=== PATIENT | female | born 1945 | race Caucasian/White ===

== ENCOUNTER 2022-05-20 10:08 | Emergency (ER) | payer BC, MEDICAID ==
[~2022-05-20] VITALS: Ht 170.2 cm; Wt 54.5 kg
[~2022-05-20 10:08] MED LIST: ACET325T57 PO; ATOR20TA66 PO; AZIT500T9 PO; CELE-193 PO; DULO-31 PO; GABA-530 PO; HYDR-3686 PO; LORA10TA7 PO; METH-798 PO; METO-292 PO; OXYC1TAB17 PO; PRED10TA PO; TRAZ-251 PO
[2022-05-20 11:07] LABS: BASOPHILS # (AUTO) 0.1 X10'3 (0-0.2); BASOPHILS % (AUTO) 0.7 % (0-1); EOSINOPHILS # (AUTO) 0.1 X10'3 (0-0.9); EOSINOPHILS % (AUTO) 0.4 % (0-6); HEMATOCRIT 33.6 % (35.0-45.0); LYMPHOCYTES # (AUTO) 1.3 X10'3 (1.1-4.8); LYMPHOCYTES % (AUTO) 8.8 % (21-51); MEAN CORPUSCULAR HEMOGLOBIN 30.5 PG (27.0-31.0); MEAN CORPUSCULAR HGB CONC 32.9 g/dL (33.0-36.5); MEAN CORPUSCULAR VOLUME 92.6 FL (78-98); MEAN PLATELET VOLUME 6.4 FL (7.4-10.4); MONOCYTES # (AUTO) 0.9 X10'3 (0-0.9); MONOCYTES % (AUTO) 5.7 % (2-12); NEUTROPHILS # (AUTO) 12.8 X10'3 (1.8-7.7); NEUTROPHILS % (AUTO) 84.4 % (42-75); PLATELET COUNT 476 X10'3 (140-440); RED BLOOD COUNT 3.62 X10'6 (4.20-5.60); RED CELL DISTRIBUTION WIDTH 15.3 % (11.5-14.5); WHITE BLOOD COUNT 15.2 X10'3 (4.5-11.0)
[2022-05-20 11:30] LABS: ALANINE AMINOTRANSFERASE 22 U/L (12-78); ALBUMIN/GLOBULIN RATIO 0.6 (1.1-1.5); ALKALINE PHOSPHATASE 93 IU/L (46-116); ANION GAP 7 (8-16); ASPARTATE AMINO TRANSFERASE 17 U/L (10-37); BILIRUBIN,TOTAL 0.3 MG/DL (0.1-1.0); BLOOD UREA NITROGEN 11 MG/DL (7-18); BUN/CREATININE RATIO 18.6 (6.6-38.0); CALCIUM 9.2 MG/DL (8.5-10.1); CHLORIDE 97 MMOL/L (99-107); CREATININE 0.59 MG/DL (0.40-0.90); GLUCOSE 99 MG/DL (70-104); POTASSIUM 4.1 MMOL/L (3.5-5.1); SODIUM 130 MMOL/L (135-145); TOTAL CARBON DIOXIDE 26.4 MMOL/L (24-32); eGFR > 90 ML/MIN
[2022-05-20] MEDS ORDERED: HYDROcodone/acetaminophen 5mg/325mg tablet PO ONE (12:10)
[2022-05-20] MEDS ORDERED: benzonatate 100mg capsule PO ONE (12:10)
[2022-05-20 12:37] LABS: D-DIMER 0.37 MG/L FEU (0-0.50)
[2022-05-20] MEDS ORDERED: normal saline 1000ML IV soln IVB ONE (13:25)
[2022-05-20] MEDS ORDERED: AZIT-83 PO (14:00)
[2022-05-20] MEDS ORDERED: BENZ-38 PO (14:00)
[2022-05-20 14:59] VITALS: BP 120/75
== END 2022-05-20 15:16 | disposition home or self-care (01) ==
LOC: ER 10:11
DX: J18.9 Pneumonia, unspecified organism (principal); R07.89 Other chest pain; R05.9 Cough, unspecified; I12.0 Hypertensive chronic kidney disease with stage 5 chronic kidney disease or end stage renal disease; J44.9 Chronic obstructive pulmonary disease, unspecified; N18.9 Chronic kidney disease, unspecified; Z88.2 Allergy status to sulfonamides
CPT/HCPCS: 36415; 71046; 80053; 83605; 83880; 84484; 85025; 85379; 99285; J7030

== ENCOUNTER 2022-11-19 11:28 | Emergency (ER) | payer BC, MEDICAID ==
[~2022-11-19] VITALS: Ht 170.2 cm; Wt 55.5 kg
[2022-11-19 11:38] VITALS: TEMP 98.6
[2022-11-19] MEDS ORDERED: albuterol 2.5 MG/3 ML nebule CONTNEB PRN (11:45)
[2022-11-19] MEDS ORDERED: ipratropium/albuterol 3ml nebule NEB ONE (11:50)
[2022-11-19 11:55] LABS: BASOPHILS # (AUTO) 0.1 X10'3 (0-0.2); BASOPHILS % (AUTO) 0.6 % (0-1); EOSINOPHILS # (AUTO) 0.2 X10'3 (0-0.9); EOSINOPHILS % (AUTO) 1.4 % (0-6); HEMATOCRIT 36.6 % (35.0-45.0); HEMOGLOBIN 11.7 g/dl (12.0-16.0); LYMPHOCYTES # (AUTO) 2.4 X10'3 (1.1-4.8); LYMPHOCYTES % (AUTO) 15.9 % (21-51); MEAN CORPUSCULAR HEMOGLOBIN 30.6 PG (27.0-31.0); MEAN CORPUSCULAR VOLUME 95.6 FL (78-98); MONOCYTES # (AUTO) 0.8 X10'3 (0-0.9); MONOCYTES % (AUTO) 5.2 % (2-12); NEUTROPHILS # (AUTO) 11.6 X10'3 (1.8-7.7); NEUTROPHILS % (AUTO) 76.9 % (42-75); PLATELET COUNT 347 X10'3 (140-440); RED BLOOD COUNT 3.83 X10'6 (4.20-5.60); RED CELL DISTRIBUTION WIDTH 14.7 % (11.5-14.5); WHITE BLOOD COUNT 15.1 X10'3 (4.5-11.0)
[2022-11-19 12:06] VITALS: PULSE 112; RESP 22; O2SAT 98
[2022-11-19 12:11] VITALS: PULSE 113; RESP 24; O2SAT 100
[2022-11-19 12:12] LABS: ALANINE AMINOTRANSFERASE 44 U/L (12-78); ALBUMIN 3.5 G/DL (3.4-5.0); ALBUMIN/GLOBULIN RATIO 0.8 (1.1-1.5); ALKALINE PHOSPHATASE 110 IU/L (46-116); ANION GAP 10 (8-16); ASPARTATE AMINO TRANSFERASE 37 U/L (10-37); BILIRUBIN,TOTAL 0.3 MG/DL (0.1-1.0); BLOOD UREA NITROGEN 16 MG/DL (7-18); BUN/CREATININE RATIO 20.3 (10.0-20.0); CALCIUM 9.4 MG/DL (8.5-10.1); CHLORIDE 101 MMOL/L (99-107); CREATININE 0.79 MG/DL (0.40-0.90); GLUCOSE 150 MG/DL (70-104); POTASSIUM 4.7 MMOL/L (3.5-5.1); SODIUM 139 MMOL/L (135-145); TOTAL CARBON DIOXIDE 28.1 MMOL/L (24-32); TOTAL PROTEIN 7.8 G/DL (6.4-8.2); eGFR 71 ML/MIN
[2022-11-19] MEDS ORDERED: normal saline 1000ml 1,000 ML IV ONE (12:50)
--- NOTE | 2022-11-19 12:58 | NUR ---
PAGED APPRENTICE STYLIST FOR O2 CYLINDER FOR TRANSPORTATION HOME AFTER D/C.
--- NOTE | 2022-11-19 13:26 | NUR ---
MARYA SCANLON MAN. ARRANGED WITH [facility] FOR O2 TANK DROP OFF AT ER BEDSIDE. UNABLE TO PROVIDE ETA.
--- NOTE | 2022-11-19 14:26 | NUR ---
Kiran lopez in [facility] - 11/19/22 at 1427 by ANITHA picc line removed by kathe reich
[2022-11-19 14:31] VITALS: BP 130/75; PULSE 92; RESP 15; O2SAT 95
--- NOTE | 2022-11-19 15:18 | NUR ---
paged adoption social worker o2 tank is not needed as pt left the er .
== END 2022-11-19 15:17 | disposition home or self-care (01) ==
LOC: ER 11:29
DX: E86.0 Dehydration (principal); R00.0 Tachycardia, unspecified; J44.9 Chronic obstructive pulmonary disease, unspecified; I12.0 Hypertensive chronic kidney disease with stage 5 chronic kidney disease or end stage renal disease; N18.9 Chronic kidney disease, unspecified; Z88.2 Allergy status to sulfonamides; Z79.82 Long term (current) use of aspirin; Z79.1 Long term (current) use of non-steroidal anti-inflammatories (NSAID); Z79.899 Other long term (current) drug therapy
CPT/HCPCS: 36415; 71045; 80053; 83605; 83880; 84145; 84484; 85025; 87040; 93005; 94640; 96360; 99285; J7030; 94760; A6258; A6449

== ENCOUNTER 2022-11-22 09:09 | Emergency (ER) | payer BC, MEDICAID ==
[~2022-11-22] VITALS: Ht 170.2 cm; Wt 56.8 kg
[2022-11-22 09:19] VITALS: TEMP 99.4
[2022-11-22 09:29] LABS: BASOPHILS # (AUTO) 0.1 X10'3 (0-0.2); BASOPHILS % (AUTO) 0.7 % (0-1); EOSINOPHILS # (AUTO) 0.2 X10'3 (0-0.9); EOSINOPHILS % (AUTO) 2.1 % (0-6); HEMATOCRIT 30.3 % (35.0-45.0); LYMPHOCYTES # (AUTO) 1.7 X10'3 (1.1-4.8); LYMPHOCYTES % (AUTO) 20.6 % (21-51); MEAN CORPUSCULAR HEMOGLOBIN 31.3 PG (27.0-31.0); MEAN CORPUSCULAR VOLUME 94.7 FL (78-98); MEAN PLATELET VOLUME 7.6 FL (7.4-10.4); MONOCYTES # (AUTO) 0.8 X10'3 (0-0.9); MONOCYTES % (AUTO) 9.8 % (2-12); NEUTROPHILS # (AUTO) 5.6 X10'3 (1.8-7.7); NEUTROPHILS % (AUTO) 66.8 % (42-75); PLATELET COUNT 306 X10'3 (140-440); RED CELL DISTRIBUTION WIDTH 14.1 % (11.5-14.5); WHITE BLOOD COUNT 8.4 X10'3 (4.5-11.0)
[2022-11-22 09:53] LABS: ALANINE AMINOTRANSFERASE 40 U/L (12-78); ALBUMIN 3.1 G/DL (3.4-5.0); ALBUMIN/GLOBULIN RATIO 0.7 (1.1-1.5); ALKALINE PHOSPHATASE 107 IU/L (46-116); ANION GAP 9 (8-16); ASPARTATE AMINO TRANSFERASE 26 U/L (10-37); BILIRUBIN,TOTAL 0.2 MG/DL (0.1-1.0); BLOOD UREA NITROGEN 9 MG/DL (7-18); BUN/CREATININE RATIO 14.5 (10.0-20.0); CALCIUM 9.2 MG/DL (8.5-10.1); CHLORIDE 101 MMOL/L (99-107); CREATININE 0.62 MG/DL (0.40-0.90); GLUCOSE 118 MG/DL (70-104); POTASSIUM 4.1 MMOL/L (3.5-5.1); SODIUM 137 MMOL/L (135-145); TOTAL CARBON DIOXIDE 27.4 MMOL/L (24-32); TOTAL PROTEIN 7.4 G/DL (6.4-8.2); eGFR > 90 ML/MIN
[2022-11-22] MEDS ORDERED: methylPREDNISolone sod succ 125mg/2ml vial IV ONE (10:35)
[2022-11-22] MEDS ORDERED: albuterol 2.5 MG/3 ML nebule NEB ONE (10:35)
[2022-11-22] MEDS ORDERED: AMOX-419 PO (13:25)
[2022-11-22 13:49] VITALS: PULSE 100; PULSE 93; RESP 20; O2SAT 96; O2SAT 97
[2022-11-22 14:41] VITALS: BP 138/72; PULSE 89; RESP 20; O2SAT 97
== END 2022-11-22 14:43 | disposition home or self-care (01) ==
LOC: ER 09:09
DX: R05.9 Cough, unspecified (principal); R50.9 Fever, unspecified; I11.0 Hypertensive heart disease with heart failure; J44.9 Chronic obstructive pulmonary disease, unspecified; N18.9 Chronic kidney disease, unspecified; Z88.2 Allergy status to sulfonamides; Z88.6 Allergy status to analgesic agent; Z79.1 Long term (current) use of non-steroidal anti-inflammatories (NSAID); Z79.2 Long term (current) use of antibiotics; Z79.899 Other long term (current) drug therapy
CPT/HCPCS: 36415; 71045; 80053; 83880; 84484; 85025; 93005; 94640; 96374; 99285; J2930; 94760

== ENCOUNTER 2022-12-10 13:01 | Inpatient (IN) | payer BC, MEDICAID ==
[~2022-12-10] VITALS: Ht 162.6 cm; Wt 55.5 kg
[2022-12-10 13:25] LABS: BASOPHILS # (AUTO) 0.1 X10'3 (0-0.2); BASOPHILS % (AUTO) 0.4 % (0-1); EOSINOPHILS # (AUTO) 0.1 X10'3 (0-0.9); EOSINOPHILS % (AUTO) 0.5 % (0-6); HEMATOCRIT 32.3 % (35.0-45.0); HEMOGLOBIN 10.4 g/dl (12.0-16.0); LYMPHOCYTES # (AUTO) 1.1 X10'3 (1.1-4.8); LYMPHOCYTES % (AUTO) 7.5 % (21-51); MEAN CORPUSCULAR HEMOGLOBIN 30.8 PG (27.0-31.0); MEAN CORPUSCULAR HGB CONC 32.3 g/dL (33.0-36.5); MEAN CORPUSCULAR VOLUME 95.3 FL (78-98); MEAN PLATELET VOLUME 7.6 FL (7.4-10.4); MONOCYTES # (AUTO) 1.2 X10'3 (0-0.9); MONOCYTES % (AUTO) 7.8 % (2-12); NEUTROPHILS # (AUTO) 12.7 X10'3 (1.8-7.7); NEUTROPHILS % (AUTO) 83.8 % (42-75); PLATELET COUNT 382 X10'3 (140-440); RED BLOOD COUNT 3.39 X10'6 (4.20-5.60); RED CELL DISTRIBUTION WIDTH 13.5 % (11.5-14.5); WHITE BLOOD COUNT 15.1 X10'3 (4.5-11.0)
[2022-12-10 13:53] LABS: ALANINE AMINOTRANSFERASE 31 U/L (12-78); ALBUMIN 2.9 G/DL (3.4-5.0); ALBUMIN/GLOBULIN RATIO 0.6 (1.1-1.5); ALKALINE PHOSPHATASE 98 IU/L (46-116); ANION GAP 12 (8-16); ASPARTATE AMINO TRANSFERASE 15 U/L (10-37); BILIRUBIN,TOTAL 0.2 MG/DL (0.1-1.0); BLOOD UREA NITROGEN 8 MG/DL (7-18); BUN/CREATININE RATIO 12.5 (10.0-20.0); CALCIUM 9.3 MG/DL (8.5-10.1); CHLORIDE 93 MMOL/L (99-107); CREATININE 0.64 MG/DL (0.40-0.90); GLUCOSE 238 MG/DL (70-104); POTASSIUM 3.5 MMOL/L (3.5-5.1); SODIUM 131 MMOL/L (135-145); TOTAL CARBON DIOXIDE 26.5 MMOL/L (24-32); TOTAL PROTEIN 7.7 G/DL (6.4-8.2); eCRCL 65 ML/MIN; eGFR 90 ML/MIN
[2022-12-10 14:00] LABS: PRO BRAIN NATRIURETIC PEPTIDE 137 PG/ML (0-450)
[2022-12-10] MEDS ORDERED: ipratropium/albuterol 3ml nebule NEB ONE (14:10)
[2022-12-10] MEDS ORDERED: methylPREDNISolone sod succ 125mg/2ml vial IV ONE (14:10)
[2022-12-10] MEDS ORDERED: MEROPENEM 1GM/NS 100ML IVPB 100 ML IV STA (14:28)
[2022-12-10] MEDS ORDERED: normal saline 1000ML IV soln IVB ONE (14:35)
[2022-12-10 14:43] VITALS: PULSE 110; PULSE 111; RESP 24; RESP 28; O2SAT 97; O2SAT 98
[2022-12-10 14:48] LABS: D-DIMER 0.26 MG/L FEU (0-0.50)
[2022-12-10] MEDS ORDERED: acetaminophen 325mg tablet PO PRN ×2 (15:30)
[2022-12-10] MEDS ORDERED: potassium Cl 20 mEq SR tablet PO PRN ×2 (15:30)
[2022-12-10] MEDS ORDERED: potassium Cl 40MEQ/1/2NS 520ml 520 ML IV PRN (15:30)
[2022-12-10] MEDS ORDERED: HYDROmorphone inj. 0.5 MG/0.5 ML DISP.SYRIN IV PRN (15:30)
[2022-12-10] MEDS ORDERED: magnesium Cl slow-release 64mg tablet PO PRN (15:30)
[2022-12-10] MEDS ORDERED: magnesium 2GM in 50ml NS 50 ML IV PRN (15:30)
[2022-12-10] MEDS ORDERED: magnesium 4gm in 100ml NS 100 ML IV PRN (15:30)
[2022-12-10] MEDS ORDERED: ondansetron 4mg rapidly disintigrating tab PO PRN (15:30)
[2022-12-10] MEDS ORDERED: HYDROmorphone/PF 0.2 MG/ML SYRINGE IV PRN (15:30)
[2022-12-10] MEDS ORDERED: ondansetron/PF 4mg/2ml inj IV PRN (15:30)
[2022-12-10] MEDS ORDERED: mag hydrox/Alum hydrox/simeth 30ml oral suspension PO PRN (15:30)
[2022-12-10] MEDS ORDERED: MEROPENEM 1GM/NS 100ML IVPB 100 ML IV SCH (16:00)
[2022-12-10] MEDS: normal saline 1000ml 1,000 ML IV SCH (16:03)
[2022-12-10] MEDS ORDERED: ATOR20TA PO (16:29)
[2022-12-10] MEDS ORDERED: CELE100C98 PO (16:29)
[2022-12-10] MEDS ORDERED: FLUT1BLS4 PO (16:29)
[2022-12-10] MEDS ORDERED: GABA-530 PO (16:29)
[2022-12-10] MEDS ORDERED: OXYC10TA47 PO (16:29)
[2022-12-10] MEDS ORDERED: QUET100T34 PO (16:29)
[2022-12-10] MEDS ORDERED: TRAZ-251 PO (16:29)
[2022-12-10] MEDS ORDERED: QUET25TA36 PO (16:29)
[2022-12-10] MEDS ORDERED: METO10TA3 PO (16:29)
[2022-12-10] MEDS ORDERED: IPRA3AMP31 NEB (16:29)
[2022-12-10] MEDS ORDERED: METH-798 PO (16:38)
[2022-12-10] MEDS ORDERED: OXYcodone immediate-release 10MG tablet PO PRN (18:00)
[2022-12-10] MEDS: HYDROcodone/acetaminophen 5mg/325mg tablet PO PRN (18:26)
[2022-12-10] MEDS ORDERED: iohexol 350MG/ML 100ml bottle IV ONE (18:30)
[2022-12-10] MEDS: ipratropium/albuterol 3ml nebule NEB SCH ×2 (19:03→23:03)
[2022-12-10 19:04] VITALS: PULSE 97; RESP 16; O2SAT 94
[2022-12-10 19:12] VITALS: PULSE 100; RESP 16
[2022-12-10] MEDS: methylPREDNISolone sod succ 125mg/2ml vial IV SCH (19:22)
[2022-12-10] MEDS: traZODone 50mg tablet PO SCH (19:26)
[2022-12-10] MEDS: docusate sod 100mg capsule PO SCH (19:26)
[2022-12-10] MEDS: K and/or MAG REPLACEMENT MC SCH (20:00)
[2022-12-10] MEDS: quetiapine 100mg tablet PO SCH (20:56)
[2022-12-10] MEDS: metoclopramide 10mg tablet PO SCH (20:57)
[2022-12-10] MEDS: cyclobenzaprine 10mg tablet PO SCH (20:58)
[2022-12-10] MEDS: gabapentin 100mg capsule PO SCH (20:58)
[2022-12-10] MEDS ORDERED: oxyCODONE IR 5mg (immed. release) tablet PO PRN (21:04)
[2022-12-10] MEDS: oxyCODONE IR 5mg (immed. release) tablet PO PRN (21:21)
[2022-12-10] MEDS: MEROPENEM 1GM/NS 100ML IVPB 100 ML IV SCH (22:01)
--- NOTE | 2022-12-10 22:52 | NUR ---
TX'D PT TO HOSPITAL BED FOR COMFORT, GAVE WARM BLANKETS, REPOSITION FOR COMFORT. NS INFUSING, 02 5L NC, AT BS
[2022-12-10 23:03] VITALS: PULSE 102; RESP 20; O2SAT 95
[2022-12-10 23:15] VITALS: PULSE 115; RESP 16
[2022-12-11] VITALS (17 sets, daily range): BP systolic 131–158; BP diastolic 62–86; PULSE 92–118; RESP 16–24; TEMP 98–98.6; O2SAT 92–99
--- NOTE | 2022-12-11 00:48 | NUR ---
Patient in room ED 12. I have received report from BISI POLANCO RN and had the opportunity to ask questions and assume patient care.
--- NOTE | 2022-12-11 01:00 | NUR ---
PT ARRIVED TO FLOOR VIA HOSPITAL BED. ACCOMPANIED BY ER STAFF AND AT SIDE.
[2022-12-11] MEDS: oxyCODONE IR 5mg (immed. release) tablet PO PRN (01:35)
[2022-12-11] MEDS: methylPREDNISolone sod succ 125mg/2ml vial IV SCH ×4 (01:35→21:56)
[2022-12-11] MEDS: QUEtiapine 25mg tablet PO PRN ×2 (03:23→04:36)
[2022-12-11] MEDS: ipratropium/albuterol 3ml nebule NEB SCH ×5 (03:31→20:05)
[2022-12-11] MEDS: HYDROcodone/acetaminophen 5mg/325mg tablet PO PRN ×3 (03:33→15:54)
[2022-12-11] MEDS: normal saline 1000ml 1,000 ML IV SCH ×2 (05:48→21:55)
--- NOTE | 2022-12-11 06:25 | NUR ---
Problems reprioritized. Patient report given, questions answered & plan of care reviewed with SHARMILA WHITMAN.
--- NOTE | 2022-12-11 06:42 | NUR ---
Patient in room ORTHO 4011. I have received report from LENNY DOLL and had the opportunity to ask questions and assume patient care.
[2022-12-11 06:44] LABS: BASOPHILS % (AUTO) 0.1 % (0-1); EOSINOPHILS % (AUTO) 0 % (0-6); HEMATOCRIT 28.4 % (35.0-45.0); HEMOGLOBIN 9.4 g/dl (12.0-16.0); LYMPHOCYTES # (AUTO) 0.7 X10'3 (1.1-4.8); LYMPHOCYTES % (AUTO) 7.8 % (21-51); MEAN CORPUSCULAR HEMOGLOBIN 31.3 PG (27.0-31.0); MEAN CORPUSCULAR HGB CONC 33.2 g/dL (33.0-36.5); MEAN CORPUSCULAR VOLUME 94.2 FL (78-98); MEAN PLATELET VOLUME 7.4 FL (7.4-10.4); MONOCYTES # (AUTO) 0.2 X10'3 (0-0.9); NEUTROPHILS # (AUTO) 8.4 X10'3 (1.8-7.7); NEUTROPHILS % (AUTO) 90.1 % (42-75); PLATELET COUNT 334 X10'3 (140-440); RED BLOOD COUNT 3.01 X10'6 (4.20-5.60); RED CELL DISTRIBUTION WIDTH 13.9 % (11.5-14.5); WHITE BLOOD COUNT 9.3 X10'3 (4.5-11.0)
[2022-12-11 07:11] LABS: ALANINE AMINOTRANSFERASE 23 U/L (12-78); ALBUMIN 2.4 G/DL (3.4-5.0); ALBUMIN/GLOBULIN RATIO 0.6 (1.1-1.5); ALKALINE PHOSPHATASE 81 IU/L (46-116); ANION GAP 8 (8-16); ASPARTATE AMINO TRANSFERASE 13 U/L (10-37); BILIRUBIN,TOTAL 0.1 MG/DL (0.1-1.0); BLOOD UREA NITROGEN 6 MG/DL (7-18); BUN/CREATININE RATIO 13.3 (10.0-20.0); CALCIUM 8.6 MG/DL (8.5-10.1); CHLORIDE 101 MMOL/L (99-107); CREATININE 0.45 MG/DL (0.40-0.90); GLUCOSE 155 MG/DL (70-104); MAGNESIUM 1.7 MG/DL (1.5-2.4); SODIUM 138 MMOL/L (135-145); TOTAL CARBON DIOXIDE 28.6 MMOL/L (24-32); TOTAL PROTEIN 6.5 G/DL (6.4-8.2); eCRCL 92 ML/MIN; eGFR > 90 ML/MIN
[2022-12-11] MEDS ORDERED: celeCOXIB 100mg capsule PO SCH (08:00)
[2022-12-11] MEDS: K and/or MAG REPLACEMENT MC SCH ×2 (08:00→20:00)
[2022-12-11] MEDS: docusate sod 100mg capsule PO SCH (08:46)
[2022-12-11] MEDS: MEROPENEM 1GM/NS 100ML IVPB 100 ML IV SCH (08:46)
[2022-12-11] MEDS: cyclobenzaprine 10mg tablet PO SCH ×3 (08:47→21:36)
[2022-12-11] MEDS: quetiapine 100mg tablet PO SCH ×4 (08:47→21:36)
[2022-12-11] MEDS: gabapentin 100mg capsule PO SCH ×3 (08:47→21:36)
[2022-12-11] MEDS: atorvastatin 20mg tablet PO SCH (08:47)
[2022-12-11] MEDS: metoclopramide 10mg tablet PO SCH (08:47)
[2022-12-11] MEDS: traZODone 50mg tablet PO SCH ×2 (08:47→21:36)
--- NOTE | 2022-12-11 13:22 | NUR ---
pATIENTS hr 134,resps 34. patient also complaining of chest pain EKG done and seen by Dr magaña, . Speech eval ordered for swallowing as patient appears to have "panic attacks" when eating. Dilaudid given for pain, seroquel scheduled as give, given. Patient appears to have calmed down following intervention.HR 99, O2 92%,
[2022-12-11] MEDS ORDERED: LORazepam 2 mg/ml vial IV PRN (16:20)
[2022-12-11] MEDS: cefepime 2g/NS 100ml ADVANTAGE 100 ML IV SCH (21:56)
[2022-12-12] VITALS (25 sets, daily range): BP systolic 136–154; BP diastolic 68–77; PULSE 70–106; RESP 14–20; TEMP 97.7–98.7; O2SAT 94–99
[2022-12-12] MEDS: methylPREDNISolone sod succ 125mg/2ml vial IV SCH ×2 (03:34→07:54)
--- NOTE | 2022-12-12 03:38 | NUR ---
patient resting comfortably at this time, all cares given. present ,VSS
[2022-12-12] MEDS: ipratropium/albuterol 3ml nebule NEB SCH ×7 (03:41→23:18)
--- NOTE | 2022-12-12 06:33 | NUR ---
I have received report from KARYNA Austin and had the opportunity to ask questions and assume patient care. No distress at this time.
[2022-12-12 06:37] LABS: BASOPHILS % (AUTO) 0 % (0-1); EOSINOPHILS % (AUTO) 0 % (0-6); HEMATOCRIT 28.9 % (35.0-45.0); HEMOGLOBIN 9.3 g/dl (12.0-16.0); LYMPHOCYTES # (AUTO) 0.7 X10'3 (1.1-4.8); LYMPHOCYTES % (AUTO) 3.8 % (21-51); MEAN CORPUSCULAR HEMOGLOBIN 30.6 PG (27.0-31.0); MEAN CORPUSCULAR HGB CONC 32.3 g/dL (33.0-36.5); MEAN CORPUSCULAR VOLUME 94.6 FL (78-98); MEAN PLATELET VOLUME 7.7 FL (7.4-10.4); MONOCYTES # (AUTO) 0.4 X10'3 (0-0.9); MONOCYTES % (AUTO) 2.2 % (2-12); NEUTROPHILS # (AUTO) 18.3 X10'3 (1.8-7.7); PLATELET COUNT 414 X10'3 (140-440); RED BLOOD COUNT 3.05 X10'6 (4.20-5.60); RED CELL DISTRIBUTION WIDTH 13.8 % (11.5-14.5); WHITE BLOOD COUNT 19.5 X10'3 (4.5-11.0)
--- NOTE | 2022-12-12 06:38 | NUR ---
Problems reprioritized. Patient report given, questions answered & plan of care reviewed with Lourdes TRONCOSO.
[2022-12-12 06:40] LABS: ALANINE AMINOTRANSFERASE 24 U/L (12-78); ALBUMIN 2.5 G/DL (3.4-5.0); ALBUMIN/GLOBULIN RATIO 0.6 (1.1-1.5); ALKALINE PHOSPHATASE 84 IU/L (46-116); ANION GAP 4 (8-16); ASPARTATE AMINO TRANSFERASE 13 U/L (10-37); BILIRUBIN,TOTAL 0.1 MG/DL (0.1-1.0); BLOOD UREA NITROGEN 10 MG/DL (7-18); BUN/CREATININE RATIO 18.5 (10.0-20.0); CALCIUM 8.7 MG/DL (8.5-10.1); CHLORIDE 104 MMOL/L (99-107); CREATININE 0.54 MG/DL (0.40-0.90); GLUCOSE 159 MG/DL (70-104); MAGNESIUM 1.9 MG/DL (1.5-2.4); POTASSIUM 4.1 MMOL/L (3.5-5.1); SODIUM 139 MMOL/L (135-145); TOTAL CARBON DIOXIDE 31.4 MMOL/L (24-32); TOTAL PROTEIN 6.5 G/DL (6.4-8.2); eCRCL 77 ML/MIN; eGFR > 90 ML/MIN
--- NOTE | 2022-12-12 06:41 | NUR ---
patient resting comfortably. report given by Norman DOLL to mackenzie TRONCOSO. I agree with the charting of Norman DOLL
[2022-12-12] MEDS: atorvastatin 20mg tablet PO SCH (07:47)
[2022-12-12] MEDS: gabapentin 100mg capsule PO SCH ×3 (07:47→20:33)
[2022-12-12] MEDS: quetiapine 100mg tablet PO SCH ×4 (07:47→20:33)
[2022-12-12] MEDS: cyclobenzaprine 10mg tablet PO SCH (07:47)
[2022-12-12] MEDS: cefepime 2g/NS 100ml ADVANTAGE 100 ML IV SCH ×2 (07:54→20:32)
[2022-12-12] MEDS: K and/or MAG REPLACEMENT MC SCH ×2 (08:00→20:00)
[2022-12-12] MEDS: HYDROcodone/acetaminophen 10/325mg tab PO PRN ×2 (09:05→13:23)
[2022-12-12] MEDS: normal saline 1000ml 1,000 ML IV SCH (11:21)
[2022-12-12] MEDS: LORazepam 0.5 MG tablet PO PRN ×2 (11:22→17:22)
--- NOTE | 2022-12-12 13:48 | NUR ---
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
--- NOTE | 2022-12-12 18:00 | NUR ---
Patient in room ORTHO 4011. I have received report from KARYNA Freed and had the opportunity to ask questions and assume patient care.
--- NOTE | 2022-12-12 18:19 | NUR ---
Problems reprioritized. Patient report given, questions answered & plan of care reviewed with Darby DOLL.
[2022-12-12] MEDS: traZODone 50mg tablet PO SCH (20:33)
[2022-12-12] MEDS: methylPREDNISolone sod succ/PF 40mg inj. IV SCH (20:33)
[2022-12-13] VITALS (21 sets, daily range): BP systolic 144–183; BP diastolic 76–91; PULSE 79–108; RESP 14–23; TEMP 97.7–98.6; O2SAT 94–98
[2022-12-13] MEDS: HYDROcodone/acetaminophen 10/325mg tab PO PRN ×4 (02:05→21:51)
[2022-12-13] MEDS: normal saline 1000ml 1,000 ML IV SCH ×2 (02:13→15:34)
[2022-12-13] MEDS: ipratropium/albuterol 3ml nebule NEB SCH ×3 (03:13→11:04)
--- NOTE | 2022-12-13 06:20 | NUR ---
Problems reprioritized. Patient report given, questions answered & plan of care reviewed with KARYNA Freed
--- NOTE | 2022-12-13 06:29 | NUR ---
I have received report from SHARMILA Kenny and had the opportunity to ask questions and assume patient care. No distress at this time.
[2022-12-13 06:52] LABS: BASOPHILS % (AUTO) 0.1 % (0-1); EOSINOPHILS % (AUTO) 0 % (0-6); HEMATOCRIT 27.8 % (35.0-45.0); HEMOGLOBIN 9.1 g/dl (12.0-16.0); LYMPHOCYTES # (AUTO) 2.5 X10'3 (1.1-4.8); LYMPHOCYTES % (AUTO) 13.5 % (21-51); MEAN CORPUSCULAR HEMOGLOBIN 30.7 PG (27.0-31.0); MEAN CORPUSCULAR HGB CONC 32.6 g/dL (33.0-36.5); MEAN CORPUSCULAR VOLUME 94.2 FL (78-98); MEAN PLATELET VOLUME 7.2 FL (7.4-10.4); MONOCYTES # (AUTO) 1.5 X10'3 (0-0.9); MONOCYTES % (AUTO) 7.8 % (2-12); NEUTROPHILS # (AUTO) 14.8 X10'3 (1.8-7.7); NEUTROPHILS % (AUTO) 78.6 % (42-75); PLATELET COUNT 437 X10'3 (140-440); RED BLOOD COUNT 2.95 X10'6 (4.20-5.60); RED CELL DISTRIBUTION WIDTH 14.1 % (11.5-14.5); WHITE BLOOD COUNT 18.8 X10'3 (4.5-11.0)
[2022-12-13 07:15] LABS: ALANINE AMINOTRANSFERASE 28 U/L (12-78); ALBUMIN 2.4 G/DL (3.4-5.0); ALBUMIN/GLOBULIN RATIO 0.6 (1.1-1.5); ALKALINE PHOSPHATASE 85 IU/L (46-116); ANION GAP 4 (8-16); ASPARTATE AMINO TRANSFERASE 17 U/L (10-37); BILIRUBIN,TOTAL 0.1 MG/DL (0.1-1.0); BLOOD UREA NITROGEN 13 MG/DL (7-18); CALCIUM 8.6 MG/DL (8.5-10.1); CHLORIDE 103 MMOL/L (99-107); GLUCOSE 111 MG/DL (70-104); SODIUM 140 MMOL/L (135-145); TOTAL CARBON DIOXIDE 33.3 MMOL/L (24-32); TOTAL PROTEIN 6.3 G/DL (6.4-8.2); eCRCL 83 ML/MIN; eGFR > 90 ML/MIN
[2022-12-13] MEDS: atorvastatin 20mg tablet PO SCH (07:30)
[2022-12-13] MEDS: gabapentin 100mg capsule PO SCH ×3 (07:30→20:23)
[2022-12-13] MEDS: quetiapine 100mg tablet PO SCH ×4 (07:30→20:23)
[2022-12-13] MEDS: LORazepam 0.5 MG tablet PO PRN ×3 (07:30→21:51)
[2022-12-13] MEDS: K and/or MAG REPLACEMENT MC SCH ×2 (07:30→20:00)
[2022-12-13] MEDS: methylPREDNISolone sod succ/PF 40mg inj. IV SCH ×2 (08:05→20:23)
[2022-12-13] MEDS: cefepime 2g/NS 100ml ADVANTAGE 100 ML IV SCH ×2 (08:06→20:23)
[2022-12-13] MEDS ORDERED: morphine 2 MG/ML inj. syringe IV PRN (11:45)
--- NOTE | 2022-12-13 14:51 | NUR ---
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
[2022-12-13] MEDS: levalbuterol 0.63mg/3ml nebule IH SCH ×2 (15:02→20:43)
--- NOTE | 2022-12-13 18:00 | NUR ---
Patient in room ORTHO 4011. I have received report from KARYNA Freed and had the opportunity to ask questions and assume patient care.
--- NOTE | 2022-12-13 18:12 | NUR ---
Problems reprioritized. Patient report given, questions answered & plan of care reviewed with SHARMILA Shay.
[2022-12-13] MEDS: traZODone 50mg tablet PO SCH (20:23)
[2022-12-14] VITALS (15 sets, daily range): BP systolic 134–161; BP diastolic 71–76; PULSE 78–131; RESP 16–24; TEMP 97.9–98.3; O2SAT 88–98
[2022-12-14] MEDS: levalbuterol 0.63mg/3ml nebule IH SCH ×5 (02:29→21:16)
--- NOTE | 2022-12-14 06:30 | NUR ---
Problems reprioritized. Patient report given, questions answered & plan of care reviewed with SHARMILA Viveros.
[2022-12-14] MEDS: K and/or MAG REPLACEMENT MC SCH ×2 (08:00→19:51)
[2022-12-14] MEDS: cefepime 2g/NS 100ml ADVANTAGE 100 ML IV SCH ×2 (08:38→19:39)
[2022-12-14] MEDS: quetiapine 100mg tablet PO SCH ×4 (08:39→20:19)
[2022-12-14] MEDS: atorvastatin 20mg tablet PO SCH (08:39)
[2022-12-14] MEDS: HYDROcodone/acetaminophen 10/325mg tab PO PRN ×3 (08:39→22:02)
[2022-12-14] MEDS: gabapentin 100mg capsule PO SCH ×3 (08:40→20:20)
[2022-12-14] MEDS: methylPREDNISolone sod succ/PF 40mg inj. IV SCH (08:40)
[2022-12-14 08:48] LABS: BASOPHILS % (AUTO) 0.2 % (0-1); EOSINOPHILS % (AUTO) 0.1 % (0-6); HEMATOCRIT 36.5 % (35.0-45.0); HEMOGLOBIN 11.6 g/dl (12.0-16.0); LYMPHOCYTES # (AUTO) 2.5 X10'3 (1.1-4.8); LYMPHOCYTES % (AUTO) 15.1 % (21-51); MEAN CORPUSCULAR HEMOGLOBIN 30.5 PG (27.0-31.0); MEAN CORPUSCULAR HGB CONC 31.8 g/dL (33.0-36.5); MEAN CORPUSCULAR VOLUME 95.9 FL (78-98); MEAN PLATELET VOLUME 7.1 FL (7.4-10.4); MONOCYTES # (AUTO) 0.8 X10'3 (0-0.9); MONOCYTES % (AUTO) 4.9 % (2-12); NEUTROPHILS # (AUTO) 13.4 X10'3 (1.8-7.7); NEUTROPHILS % (AUTO) 79.7 % (42-75); PLATELET COUNT 555 X10'3 (140-440); RED BLOOD COUNT 3.81 X10'6 (4.20-5.60); RED CELL DISTRIBUTION WIDTH 13.7 % (11.5-14.5); WHITE BLOOD COUNT 16.8 X10'3 (4.5-11.0)
[2022-12-14 09:21] LABS: ALANINE AMINOTRANSFERASE 39 U/L (12-78); ALBUMIN 2.8 G/DL (3.4-5.0); ALBUMIN/GLOBULIN RATIO 0.6 (1.1-1.5); ALKALINE PHOSPHATASE 89 IU/L (46-116); ANION GAP 6 (8-16); ASPARTATE AMINO TRANSFERASE 14 U/L (10-37); BILIRUBIN,TOTAL 0.1 MG/DL (0.1-1.0); BLOOD UREA NITROGEN 15 MG/DL (7-18); BUN/CREATININE RATIO 24.2 (10.0-20.0); CALCIUM 8.8 MG/DL (8.5-10.1); CHLORIDE 99 MMOL/L (99-107); CREATININE 0.62 MG/DL (0.40-0.90); GLUCOSE 153 MG/DL (70-104); MAGNESIUM 2.3 MG/DL (1.5-2.4); POTASSIUM 3.7 MMOL/L (3.5-5.1); SODIUM 137 MMOL/L (135-145); TOTAL CARBON DIOXIDE 31.7 MMOL/L (24-32); TOTAL PROTEIN 7.3 G/DL (6.4-8.2); eCRCL 67 ML/MIN; eGFR > 90 ML/MIN
[2022-12-14] MEDS: normal saline 1000ml 1,000 ML IV SCH (10:28)
[2022-12-14] MEDS: LORazepam 0.5 MG tablet PO PRN ×2 (15:06→22:03)
[2022-12-14] MEDS: traZODone 50mg tablet PO SCH (20:19)
[2022-12-15] VITALS (20 sets, daily range): BP systolic 114–145; BP diastolic 62–75; PULSE 84–126; RESP 14–26; TEMP 97.8–99; O2SAT 90–98
--- NOTE | 2022-12-15 03:00 | NUR ---
Patient in room ORTHO 4011. I have received report from SHARMILA SHELTON and had the opportunity to ask questions and assume patient care.
[2022-12-15] MEDS: levalbuterol 0.63mg/3ml nebule IH SCH ×4 (03:38→20:52)
[2022-12-15] MEDS: normal saline 1000ml 1,000 ML IV SCH (03:41)
[2022-12-15 06:24] LABS: BASOPHILS % (AUTO) 0.2 % (0-1); EOSINOPHILS # (AUTO) 0.2 X10'3 (0-0.9); EOSINOPHILS % (AUTO) 1.4 % (0-6); HEMATOCRIT 30.3 % (35.0-45.0); HEMOGLOBIN 9.8 g/dl (12.0-16.0); LYMPHOCYTES # (AUTO) 4.1 X10'3 (1.1-4.8); LYMPHOCYTES % (AUTO) 27.7 % (21-51); MEAN CORPUSCULAR HEMOGLOBIN 30.7 PG (27.0-31.0); MEAN CORPUSCULAR HGB CONC 32.4 g/dL (33.0-36.5); MEAN CORPUSCULAR VOLUME 94.9 FL (78-98); MONOCYTES # (AUTO) 1.4 X10'3 (0-0.9); MONOCYTES % (AUTO) 9.4 % (2-12); NEUTROPHILS % (AUTO) 61.3 % (42-75); PLATELET COUNT 520 X10'3 (140-440); RED CELL DISTRIBUTION WIDTH 13.6 % (11.5-14.5); WHITE BLOOD COUNT 14.7 X10'3 (4.5-11.0)
[2022-12-15 06:30] LABS: ALANINE AMINOTRANSFERASE 31 U/L (12-78); ALBUMIN 2.3 G/DL (3.4-5.0); ALBUMIN/GLOBULIN RATIO 0.7 (1.1-1.5); ALKALINE PHOSPHATASE 79 IU/L (46-116); ANION GAP 1 (8-16); ASPARTATE AMINO TRANSFERASE 13 U/L (10-37); BILIRUBIN,TOTAL 0.1 MG/DL (0.1-1.0); BLOOD UREA NITROGEN 22 MG/DL (7-18); BUN/CREATININE RATIO 45.8 (10.0-20.0); CHLORIDE 105 MMOL/L (99-107); CREATININE 0.48 MG/DL (0.40-0.90); GLUCOSE 89 MG/DL (70-104); POTASSIUM 3.5 MMOL/L (3.5-5.1); SODIUM 140 MMOL/L (135-145); TOTAL CARBON DIOXIDE 33.7 MMOL/L (24-32); TOTAL PROTEIN 5.8 G/DL (6.4-8.2); eCRCL 86 ML/MIN; eGFR > 90 ML/MIN
--- NOTE | 2022-12-15 06:57 | NUR ---
Problems reprioritized. Patient report given, questions answered & plan of care reviewed with SHARMILA Barkley.
[2022-12-15] MEDS: K and/or MAG REPLACEMENT MC SCH ×2 (08:00→20:00)
[2022-12-15] MEDS: atorvastatin 20mg tablet PO SCH (08:56)
[2022-12-15] MEDS: gabapentin 100mg capsule PO SCH ×3 (08:56→21:42)
[2022-12-15] MEDS: methylPREDNISolone sod succ/PF 40mg inj. IV SCH (08:56)
[2022-12-15] MEDS: cefepime 2g/NS 100ml ADVANTAGE 100 ML IV SCH ×2 (08:56→21:41)
[2022-12-15] MEDS: quetiapine 100mg tablet PO SCH ×4 (08:57→21:43)
[2022-12-15] MEDS: LORazepam 0.5 MG tablet PO PRN (10:06)
[2022-12-15 10:17] LABS: ABG BASE EXCESS 2.5 mmol/L (-2.0-2.0); ABG HCO3 26.8 mmol/L (22.0-26.0); ABG OXYGEN SATURATION 92.4 % (94-97); ABG PCO2 (T) 39.7 mmHg (32.0-45.0); ABG PH (T) 7.446 (7.350-7.450); ALLEN'S TEST POSITIVE; FCOHb 0.9 % (0.0-3.9); FHHb 7.5 % (0.0-5.0); FLOW 8 L/min; FMetHb 0.3 % (0.0-1.5); FO2Hb 91.3 % (94-97); MODE HIGH FLOW; PATIENT TEMPERATURE 36.6
[2022-12-15] MEDS: ipratropium/albuterol 3ml nebule NEB PRN ×2 (12:21→16:16)
[2022-12-15] MEDS: HYDROcodone/acetaminophen 10/325mg tab PO PRN ×2 (15:00→21:51)
--- NOTE | 2022-12-15 18:40 | NUR ---
Patient in room ORTHO 4011. I have received report from Rubia DOLL and had the opportunity to ask questions and assume patient care.
--- NOTE | 2022-12-15 18:47 | NUR ---
patient medicated for anxiety and pain see emar with good result. family present for most of shift.. IV replaced to LFA. Report given to Shelly DOLL
[2022-12-15] MEDS: traZODone 50mg tablet PO SCH (21:45)
[2022-12-16] VITALS (14 sets, daily range): BP systolic 108–138; BP diastolic 58–67; PULSE 83–134; RESP 14–24; TEMP 97.9–98.8; O2SAT 89–98
[2022-12-16] MEDS: levalbuterol 0.63mg/3ml nebule IH SCH ×4 (03:22→20:50)
[2022-12-16] MEDS: LORazepam 0.5 MG tablet PO PRN ×2 (05:39→11:04)
[2022-12-16] MEDS: HYDROcodone/acetaminophen 10/325mg tab PO PRN ×4 (05:41→20:54)
--- NOTE | 2022-12-16 06:25 | NUR ---
Problems reprioritized. Patient report given, questions answered & plan of care reviewed with Evelia DOLL.
[2022-12-16] MEDS: gabapentin 100mg capsule PO SCH ×3 (08:00→20:29)
[2022-12-16] MEDS: K and/or MAG REPLACEMENT MC SCH ×2 (08:00→20:00)
[2022-12-16] MEDS: methylPREDNISolone sod succ/PF 40mg inj. IV SCH (08:00)
[2022-12-16] MEDS: cefepime 2g/NS 100ml ADVANTAGE 100 ML IV SCH (08:00)
[2022-12-16] MEDS: quetiapine 100mg tablet PO SCH ×4 (08:00→20:29)
[2022-12-16] MEDS: atorvastatin 20mg tablet PO SCH (08:00)
[2022-12-16] MEDS: piperacillin/tazo 4.5gm/100ml 100 ML IV SCH ×3 (11:04→23:59)
[2022-12-16] MEDS: magnesium hydroxide 30ml (MOM) UD suspension PO PRN (14:14)
--- NOTE | 2022-12-16 17:35 | NUR ---
Initial: Pt admit for Acute chest pain secondary to bibasilar bronchiectasis and Bilateral pulmonary calcified and noncalcified nodules per EMR. Pt continues on a regular diet with PO average PO intake 45% x 16 meals which met82% of kcal needs and 89% of protein needs. Pt seen at bedside states "my appetite is good as normal". Pt declines food preferences at this time and agreeable to [employer] to better meet estimated needs if needed. No nutrition interventions warranted at this time. LBM on 12/13 receiving routine colace and PRN MoM today 12/16 per EMR. Will continue to follow. Recommendations: 1.continue regular diet 2.monitor PO intake and need for ONS 3.routine bowel care 4.scaled wt this admit;subsequent weekly scaled wt Addendum: 12/16/22 at [address] Amended: Links added.
--- NOTE | 2022-12-16 18:31 | NUR ---
Patient in room ORTHO 4011. I have received report from Evelia DOLL and had the opportunity to ask questions and assume patient care.
[2022-12-16] MEDS: traZODone 50mg tablet PO SCH (20:29)
[2022-12-17] VITALS (14 sets, daily range): BP systolic 108–152; BP diastolic 6–78; PULSE 76–106; RESP 14–22; TEMP 97.9–98.8; O2SAT 92–98
[2022-12-17] MEDS: levalbuterol 0.63mg/3ml nebule IH SCH ×4 (03:00→20:34)
[2022-12-17] MEDS: HYDROcodone/acetaminophen 10/325mg tab PO PRN ×3 (05:33→20:38)
[2022-12-17 06:14] LABS: BASOPHILS % (AUTO) 0.1 % (0-1); EOSINOPHILS # (AUTO) 0.3 X10'3 (0-0.9); EOSINOPHILS % (AUTO) 2.4 % (0-6); HEMATOCRIT 29.7 % (35.0-45.0); HEMOGLOBIN 9.7 g/dl (12.0-16.0); LYMPHOCYTES # (AUTO) 3.8 X10'3 (1.1-4.8); MEAN CORPUSCULAR HEMOGLOBIN 31.2 PG (27.0-31.0); MEAN CORPUSCULAR HGB CONC 32.7 g/dL (33.0-36.5); MEAN CORPUSCULAR VOLUME 95.3 FL (78-98); MEAN PLATELET VOLUME 6.9 FL (7.4-10.4); MONOCYTES # (AUTO) 1.2 X10'3 (0-0.9); MONOCYTES % (AUTO) 8.4 % (2-12); NEUTROPHILS # (AUTO) 9.2 X10'3 (1.8-7.7); NEUTROPHILS % (AUTO) 63.1 % (42-75); PLATELET COUNT 546 X10'3 (140-440); RED BLOOD COUNT 3.11 X10'6 (4.20-5.60); RED CELL DISTRIBUTION WIDTH 14.2 % (11.5-14.5); WHITE BLOOD COUNT 14.5 X10'3 (4.5-11.0)
[2022-12-17 06:22] LABS: ALANINE AMINOTRANSFERASE 29 U/L (12-78); ALBUMIN 2.4 G/DL (3.4-5.0); ALBUMIN/GLOBULIN RATIO 0.7 (1.1-1.5); ALKALINE PHOSPHATASE 82 IU/L (46-116); ANION GAP 1 (8-16); ASPARTATE AMINO TRANSFERASE 12 U/L (10-37); BILIRUBIN,TOTAL 0.2 MG/DL (0.1-1.0); BLOOD UREA NITROGEN 25 MG/DL (7-18); BUN/CREATININE RATIO 33.3 (10.0-20.0); CALCIUM 8.4 MG/DL (8.5-10.1); CHLORIDE 103 MMOL/L (99-107); CREATININE 0.75 MG/DL (0.40-0.90); GLUCOSE 105 MG/DL (70-104); POTASSIUM 3.5 MMOL/L (3.5-5.1); SODIUM 138 MMOL/L (135-145); TOTAL CARBON DIOXIDE 34.4 MMOL/L (24-32); eCRCL 55 ML/MIN; eGFR 75 ML/MIN
--- NOTE | 2022-12-17 06:29 | NUR ---
Problems reprioritized. Patient report given, questions answered & plan of care reviewed with Clarita TRONCOSO.
[2022-12-17] MEDS: quetiapine 100mg tablet PO SCH ×4 (07:39→20:33)
[2022-12-17] MEDS: atorvastatin 20mg tablet PO SCH (07:39)
[2022-12-17] MEDS: gabapentin 100mg capsule PO SCH ×3 (07:40→20:33)
[2022-12-17] MEDS: LORazepam 0.5 MG tablet PO PRN ×2 (07:40→15:07)
[2022-12-17] MEDS: K and/or MAG REPLACEMENT MC SCH ×2 (08:00→20:00)
[2022-12-17] MEDS: methylPREDNISolone sod succ/PF 40mg inj. IV SCH (08:18)
[2022-12-17] MEDS: piperacillin/tazo 4.5gm/100ml 100 ML IV SCH ×2 (08:19→16:23)
[2022-12-17] MEDS ORDERED: morphine 2 MG/ML inj. syringe IV PRN (08:30)
[2022-12-17] MEDS: furosemide 20 MG/2 ML vial IV SCH (09:14)
[2022-12-17] MEDS: QUEtiapine 25mg tablet PO PRN (15:09)
--- NOTE | 2022-12-17 17:59 | NUR ---
social service and mental health consult put in r/t patient making statements that she no longer wants to be here. notified.
--- NOTE | 2022-12-17 18:00 | NUR ---
I have reviewed and agree with interventions, assessments, and documentation by Clarita Pierce LVN.
--- NOTE | 2022-12-17 18:00 | NUR ---
Problems reprioritized. Patient report given, questions answered & plan of care reviewed with Rahel RN.
--- NOTE | 2022-12-17 20:00 | NUR ---
Agree with physical assessment by Elio sesay Lvn.
[2022-12-17] MEDS: traZODone 50mg tablet PO SCH (20:33)
[2022-12-17] MEDS: guaiFENesin ER 600mg tablet PO SCH (20:33)
[2022-12-18] MEDS: piperacillin/tazo 4.5gm/100ml 100 ML IV SCH ×2 (00:39→09:15)
[2022-12-18] MEDS: levalbuterol 0.63mg/3ml nebule IH SCH ×2 (03:00→07:32)
[2022-12-18 06:00] VITALS: BP 138/77; PULSE 86; RESP 15; TEMP 97.7; O2SAT 92
[2022-12-18] MEDS: HYDROcodone/acetaminophen 10/325mg tab PO PRN (06:07)
--- NOTE | 2022-12-18 06:34 | NUR ---
Problems reprioritized. Patient report given, questions answered & plan of care reviewed with Dionne DOLL.
[2022-12-18 07:30] VITALS: RESP 22; O2SAT 90
[2022-12-18 07:32] VITALS: PULSE 97; RESP 18; O2SAT 94
[2022-12-18 07:42] VITALS: PULSE 98; RESP 20
[2022-12-18] MEDS: guaiFENesin ER 600mg tablet PO SCH (07:50)
[2022-12-18] MEDS: atorvastatin 20mg tablet PO SCH (07:50)
[2022-12-18] MEDS: quetiapine 100mg tablet PO SCH ×2 (07:50→13:28)
[2022-12-18] MEDS: gabapentin 100mg capsule PO SCH ×2 (07:50→13:28)
[2022-12-18] MEDS: K and/or MAG REPLACEMENT MC SCH (08:00)
[2022-12-18] MEDS: LORazepam 0.5 MG tablet PO PRN (09:04)
[2022-12-18] MEDS: furosemide 20 MG/2 ML vial IV SCH (09:06)
[2022-12-18] MEDS: methylPREDNISolone sod succ/PF 40mg inj. IV SCH (09:06)
[2022-12-18 10:00] VITALS: BP 149/74; PULSE 121; RESP 24; TEMP 98.4; O2SAT 91
[2022-12-18] MEDS: magnesium hydroxide 30ml (MOM) UD suspension PO PRN (13:32)
[2022-12-19] MEDS ORDERED: methylPREDNISolone sod succ/PF 40mg inj. IV SCH (08:00)
== END 2022-12-18 14:05 | DRG 177 ==
LOC: ER 13:01 → ED HOLD 15:46 → ORTHO 4S 12-11 01:05
PROVIDERS: ADMIT Family Medicine; ATTEND Internal Medicine
PROC: B32T1ZZ Computerized Tomography (CT Scan) of Left Pulmonary Artery using Low Osmolar Contrast (ICD-10-PCS; principal; 2022-12-10)
PROC: B3201ZZ Computerized Tomography (CT Scan) of Thoracic Aorta using Low Osmolar Contrast (ICD-10-PCS; 2022-12-10)
PROC: B32S1ZZ Computerized Tomography (CT Scan) of Right Pulmonary Artery using Low Osmolar Contrast (ICD-10-PCS; 2022-12-10)
PROC: 5A0935A Assistance with Respiratory Ventilation, Less than 24 Consecutive Hours, High Flow/Velocity Cannula (ICD-10-PCS; 2022-12-11)
PROC: 5A0935A Assistance with Respiratory Ventilation, Less than 24 Consecutive Hours, High Flow/Velocity Cannula (ICD-10-PCS; 2022-12-12)
PROC: 5A0935A Assistance with Respiratory Ventilation, Less than 24 Consecutive Hours, High Flow/Velocity Cannula (ICD-10-PCS; 2022-12-13)
PROC: 5A0935A Assistance with Respiratory Ventilation, Less than 24 Consecutive Hours, High Flow/Velocity Cannula (ICD-10-PCS; 2022-12-14)
PROC: 05HY33Z Insertion of Infusion Device into Upper Vein, Percutaneous Approach (ICD-10-PCS; 2022-12-18)
PROC: B54MZZA Ultrasonography of Right Upper Extremity Veins, Guidance (ICD-10-PCS; 2022-12-18)
DX: J15.1 Pneumonia due to Pseudomonas (principal); J96.01 Acute respiratory failure with hypoxia; E87.1 Hypo-osmolality and hyponatremia; J44.1 Chronic obstructive pulmonary disease with (acute) exacerbation; J44.0 Chronic obstructive pulmonary disease with (acute) lower respiratory infection; F41.1 Generalized anxiety disorder; F32.A Depression, unspecified; N18.9 Chronic kidney disease, unspecified; G89.4 Chronic pain syndrome; J84.10 Pulmonary fibrosis, unspecified; I12.9 Hypertensive chronic kidney disease with stage 1 through stage 4 chronic kidney disease, or unspecified chronic kidney disease; D64.9 Anemia, unspecified; E03.9 Hypothyroidism, unspecified; Z99.81 Dependence on supplemental oxygen; Z88.2 Allergy status to sulfonamides; Z88.6 Allergy status to analgesic agent; Z79.899 Other long term (current) drug therapy; Z80.52 Family history of malignant neoplasm of bladder; Z87.891 Personal history of nicotine dependence
CPT/HCPCS: 36410; 36415; 36600; 71045; 71275; 76942; 80053; 82803; 83605; 83615; 83735; 83880; 84145; 84484; 85018; 85025; 85379; 85651; 87070; 87077; 87081; 87186; 93005; 94640; 94664; 94668; 94760; 97110; 97161; 97530; 97535; 99285; A4615; C1751; G0378; J0692; J1170; J1940; J2185; J2270; J2543; J2920; J2930; J3490; J7030; J7040; J7614; Q9967